=== PATIENT | male | born 1930 | race Two or more races ===

== ENCOUNTER 2018-10-18 23:00 | Inpatient (IN) | payer MEDICARE, OTHER ==
[~2018-10-18] VITALS: Ht 175.3 cm; Wt 81.6 kg
--- NOTE | 2018-10-18 23:10 | NUR ---
Pt. BIB EMS for c/o weakness and repeated falls over past two days per the daughter, A/Ox2, hx of A-fib, quadruple bypass surgery in 2000, pacemaker and HTN, pt. lives at home w/ daughter as caregiver who helps translate due to poor Lithuanian,
[2018-10-18] MEDS ORDERED: IV NORMAL SALINE 500 ML BAG IV ONE (23:15)
--- NOTE | 2018-10-18 23:24 | NUR ---
Called Radiology for CXR and CT
[2018-10-18 23:33] LABS: CARBON DIOXIDE 21 mmol/L (21-32); CHLORIDE 95 mmol/L (98-107); CREATININE 2.1 mg/dL (0.6-1.3); GLUCOSE 123 mg/dL (74-106); POTASSIUM 3.6 mmol/L (3.5-5.1); UREA NITROGEN, BLOOD 49 mg/dL (7-18)
[2018-10-18] MEDS ORDERED: TAMSULOSIN HCL 0.4 MG CAPSULE PO (23:34)
[2018-10-18] MEDS ORDERED: VOLTAREN 1% GEL (23:34)
[2018-10-18] MEDS ORDERED: ENTRESTO 24 MG-26 MG TABLET (23:34)
[2018-10-18] MEDS ORDERED: ASPIRIN 81 MG PO (23:34)
[2018-10-18] MEDS ORDERED: TRAMADOL HCL 50 MG TABLET (23:34)
[2018-10-18] MEDS ORDERED: ESCITALOPRAM 20 MG TABLET (23:34)
[2018-10-18] MEDS ORDERED: ATORVASTATIN 40 MG TABLET PO (23:34)
[2018-10-18] MEDS ORDERED: CHOL20004 PO (23:34)
[2018-10-18] MEDS ORDERED: AZELASTINE (23:34)
[2018-10-18] MEDS ORDERED: SPIRONOLACTONE 25 MG TABLET PO (23:34)
[2018-10-18] MEDS ORDERED: ELIQUIS 2.5 MG TABLET (23:34)
[2018-10-18] MEDS ORDERED: [UNRECOGNIZED DRUG - OTHER] (23:34)
[2018-10-18] MEDS ORDERED: CARVEDILOL 6.25 MG TABLET PO (23:34)
[2018-10-18] MEDS ORDERED: RANITIDINE 150 MG TABLET (23:34)
[2018-10-18 23:37] LABS: BASOPHILS % (AUTO) 0.2 % (0.0-2.0); EOSINOPHILS # (AUTO) 0.2 K/uL (0.0-0.7); EOSINOPHILS % (AUTO) 1.1 % (0.0-7.0); HEMATOCRIT 39.2 % (36.7-47.1); LYMPHOCYTES # (AUTO) 0.3 K/uL (20.0-40.0); LYMPHOCYTES % (AUTO) 1.9 % (20.5-51.5); MEAN CORPUSCULAR HEMOGLOBIN 29.2 uug (23.8-33.4); MEAN CORPUSCULAR HGB CONC 33 g/dL (32.5-36.3); MONOCYTES # (AUTO) 0.8 K/uL (2.0-10.0); MONOCYTES % (AUTO) 5.3 % (0.0-11.0); NEUTROPHILS # (AUTO) 14.3 K/uL (1.8-8.9); NEUTROPHILS % (AUTO) 91.5 % (38.5-71.5); PLATELET COUNT (AUTO) 133 K/uL (152-348); RED BLOOD CELL COUNT(AUTO) 4.46 MIL/uL (4.06-5.63); WHITE BLOOD COUNT (AUTO) 15.7 K/uL (3.6-10.2)
[2018-10-18 23:40] LABS: ETHANOL < 3 MG/DL (0-0)
[2018-10-18 23:41] LABS: *BLOOD, URINE 3+ (NEGATIVE); *CLARITY,URINE SLIGHTLY CLOUDY (CLEAR); *COLOR,URINE YELLOW (YELLOW); *KETONES,URINE TRACE (NEGATIVE); LEUKOCYTE ESTERASE ,URINE 1+ (NEGATIVE); NITRITE, URINE NEGATIVE (NEGATIVE); PH,URINE 5.5 (5.0-8.0); UGLUCOSE NEGATIVE (NEGATIVE)
--- NOTE | 2018-10-18 23:41 | NUR ---
Pt. transferred off unit for CT
[2018-10-18 23:50] LABS: ALANINE AMINOTRANSFERASE 49 U/L (16-63); ALKALINE PHOSPHATASE 105 U/L (50-136); ASPARTATE AMINOTRANSFERASE 62 U/L (15-37); BILIRUBIN,DIRECT 2.1 mg/dL (0.0-0.2); BILIRUBIN,TOTAL 2.9 mg/dL (0.2-1.0); TOTAL PROTEIN, SERUM 7.1 g/dL (6.4-8.2)
[2018-10-18 23:51] LABS: ACETAMINOPHEN < 2.0 ug/mL (10-30)
[2018-10-18 23:52] LABS: THYROID STIMULATING HORMONE 2.598 mIU/mL (0.358-3.740)
[2018-10-18 23:58] LABS: *BILIRUBIN,URIN 2+ (NEGATIVE)
[2018-10-19 00:02] LABS: BACTERIA,URINE MANY /HPF (NONE SEEN); SQUAMOUS EPITHELIAL CELL,UR MODERATE /HPF (NONE SEEN); WBC,URINE 20-50 /HPF (0-3)
--- NOTE | 2018-10-19 00:03 | NUR ---
Pt. back on unit from CT
[2018-10-19 00:05] LABS: *AMPHETAMINE, URINE NEGATIVE (NEGATIVE); *BARBITURATE, URINE NEGATIVE (NEGATIVE); *CANNABINOID, URINE NEGATIVE (NEGATIVE); *COCCAINE, URINE NEGATIVE (NEGATIVE); *OPIATE, URINE NEGATIVE (NEGATIVE); *PHENCYCLIDINE SCREEN,URINE NEGATIVE (NEGATIVE)
[2018-10-19] MEDS ORDERED: CEFTRIAXONE 1 G in IV DEXTROSE 5% 50 ML IV ONE (00:15)
[2018-10-19] MEDS ORDERED: CEFTRIAXONE 1 G VIAL ONE (00:15)
[2018-10-19 00:23] LABS: BAND % (MANUAL) 6 % (0-10); LYMPHOCYTES % (MANUAL) 4 % (20-40); MONOCYTES % (MANUAL) 8 % (2-10); NEUTROPHILS % (MANUAL) 82 % (42-75)
[2018-10-19] MEDS ORDERED: TRAMADOL HCL 50 MG TABLET PO PRN ×2 (00:45→03:40)
--- NOTE | 2018-10-19 00:47 | NUR ---
Gave report to Lorri PEARCE
[2018-10-19] MEDS ORDERED: ONDANSETRON 4 MG/2 ML VIAL IV PRN ×2 (01:00→02:00)
[2018-10-19] MEDS ORDERED: Z GUARD REMEDY PASTE 57 GM TUBE TOP PRN ×3 (01:00→11:30)
[2018-10-19] MEDS ORDERED: ACETAMINOPHEN 325 MG TABLET PO PRN ×3 (01:00→03:41)
--- NOTE | 2018-10-19 01:42 | NUR ---
Pt. taken off unit via stretcher, NAD
--- NOTE | 2018-10-19 01:45 | NUR ---
Received pt on tele unit via urszula, under the care of INNA LOVE. Pt alert and oriented x3. Pt has episodes of forgetfulness. Tele placed and noted to be Afib, atrial pacing with HR of 78. Pertinent assessments and unit orientation done. Belongings list completed. Pt denies pain, SOB or dizziness at this time. No acute distress noted. Safety precautions in place, call light within reach. Will continue to monitor closely and carry out all orders.
[2018-10-19 02:13] VITALS: BP 109/90
[2018-10-19] MEDS ORDERED: IV NS 1000 ML 1,000 ML IV PRN (03:00)
[2018-10-19 04:35] VITALS: BP 101/50
[2018-10-19 07:12] LABS: LYMPHOCYTES # (AUTO) 0.5 K/uL (20.0-40.0)
[2018-10-19 07:18] LABS: EOSINOPHILS % (AUTO) 0.3 % (0.0-7.0); LYMPHOCYTES % (AUTO) 3.4 % (20.5-51.5); MEAN CORPUSCULAR HEMOGLOBIN 28.9 uug (23.8-33.4); MEAN CORPUSCULAR HGB CONC 33 g/dL (32.5-36.3); MEAN CORPUSCULAR VOLUME 87.3 fL (73.0-96.2); MONOCYTES % (AUTO) 7.1 % (0.0-11.0); NEUTROPHILS # (AUTO) 13.2 K/uL (1.8-8.9); NEUTROPHILS % (AUTO) 89.2 % (38.5-71.5); PLATELET COUNT (AUTO) 113 K/uL (152-348); RED BLOOD CELL COUNT(AUTO) 3.93 MIL/uL (4.06-5.63); WHITE BLOOD COUNT (AUTO) 14.7 K/uL (3.6-10.2)
[2018-10-19 07:19] LABS: HEMATOCRIT 34.3 % (36.7-47.1); HEMOGLOBIN 11.4 g/dL (12.5-16.3)
[2018-10-19 07:22] LABS: CARBON DIOXIDE 19 mmol/L (21-32); CHLORIDE 98 mmol/L (98-107); CREATININE 1.8 mg/dL (0.6-1.3); GLUCOSE 131 mg/dL (74-106); MAGNESIUM 1.8 mg/dL (1.8-2.4); PHOSPHOROUS 2.6 mg/dL (2.5-4.9); POTASSIUM 3.2 mmol/L (3.5-5.1); UREA NITROGEN, BLOOD 49 mg/dL (7-18)
--- NOTE | 2018-10-19 07:30 | NUR ---
sbar report received,pt A/A/O x3,no s/s of distress,denies any pain @ time.
[2018-10-19] MEDS ORDERED: APIXABAN 5 MG TABLET PO ONE ×2 (09:00→17:00)
[2018-10-19] MEDS ORDERED: CEFTRIAXONE 1 G in IV DEXTROSE 5% 50 ML IV SCH ×2 (09:00→21:00)
[2018-10-19] MEDS: ESCITALOPRAM OXALATE 10 MG TABLET PO SCH (09:06)
[2018-10-19] MEDS: ASPIRIN EC 81 MG TABLET.DR PO SCH (09:07)
[2018-10-19] MEDS: TAMSULOSIN HCL 0.4 MG CAP.SR.24H PO SCH (09:07)
[2018-10-19] MEDS: CARVEDILOL 3.125 MG TABLET PO SCH ×2 (09:07→17:19)
[2018-10-19] MEDS: CHOLECALCIFEROL 1,000 UNIT TABLET PO SCH (09:08)
--- NOTE | 2018-10-19 11:05 | NUR ---
pt.up with PT,tolerated well.
[2018-10-19 11:19] VITALS: BP 93/50
--- NOTE | 2018-10-19 13:30 | NUR ---
PT.FAMILY AT BEDSIDE, UPDATED WITH PT.CONDITION AND PLAN OF CARE.
--- NOTE | 2018-10-19 15:00 | NUR ---
NOTED THAT PT.MIN.VOIDING IN DIAPER,BLADER SCAN WAS DONE 525ML. PT.WAS PLACED IN UPRIGHT POSITION WAS ABLE TO URINATE.
[2018-10-19] MEDS ORDERED: POTASSIUM CHLORIDE 10 MEQ TAB.PRT.SR PO ONE (15:15)
[2018-10-19 15:19] VITALS: BP 95/45
[2018-10-19] MEDS ORDERED: FUROSEMIDE 40 MG/4 ML VIAL IV ONE (17:30)
--- NOTE | 2018-10-19 18:40 | NUR ---
PT.WAS SEEN BY ELECTRIC DISTRIBUTION CHECKER:JAEL WITH NEW ORDERS.
--- NOTE | 2018-10-19 18:55 | NUR ---
PT.DAUGHTER AT BEDSIDE,UPDATED WITH PT.CONDITION AND PLAN OF CARE.
[2018-10-19 19:00] VITALS: BP 112/52
--- NOTE | 2018-10-19 19:30 | NUR ---
RECEIVED PATIENT IN BED AWAKE AND ALERT, CONFUSED. DAUGHTER IS AT BED SIDE. NO COMPLAINTS OF PAIN OR SOB. IV HEPLOCK IS IN INTACT ON THE RIGHT AC. SAFETY MEASURES INITIATED. BED IS LOW AND LOCKED, CALL LIGHT IS WITHIN REACH. WILL CONTINUE TO MONITOR.
[2018-10-19] MEDS: MEROPENEM 500 MG in IV NORMAL SALINE 50 ML IV SCH (20:13)
[2018-10-19] MEDS: ATORVASTATIN 40 MG TABLET PO SCH (20:53)
[2018-10-19] MEDS: Z GUARD REMEDY PASTE 57 GM TUBE TOP SCH (20:53)
[2018-10-20] VITALS: BP 148/66
[2018-10-20] MEDS: IPRATROPIUM BROMIDE 0.5 MG/2.5 ML NEBU NEB PRN ×2 (02:24→23:18)
[2018-10-20] MEDS: ALBUTEROL SULFATE 2.5 MG/3 ML NEBU NEB PRN ×2 (02:24→23:18)
--- NOTE | 2018-10-20 03:05 | NUR ---
BLADDER SCAN DONE AT 0246H SHOWING 602cc. INSERTED RODRIGUEZ CATHETER WITH 650cc OUTPUT. WILL CONTINUE TO MONITOR.
[2018-10-20 04:00] VITALS: BP 113/42
--- NOTE | 2018-10-20 06:47 | NUR ---
PATIENT AWAKE MOST OF THE NIGHT, CONFUSED AND AGITATED. TRYING TO GET OUT OF BED. RECEIVED ORDER TO HAVE 1:1 SITTER. SAFETY MEASURES GIVEN. IV HEPLOCK IS INTACT AND PATENT. WILL ENDORSE TO NEXT SHIFT.
[2018-10-20 06:49] LABS: CARBON DIOXIDE 20 mmol/L (21-32); CHLORIDE 96 mmol/L (98-107); CREATININE 1.5 mg/dL (0.6-1.3); GLUCOSE 122 mg/dL (74-106); MAGNESIUM 1.9 mg/dL (1.8-2.4); PHOSPHOROUS 1.7 mg/dL (2.5-4.9); POTASSIUM 3.8 mmol/L (3.5-5.1); UREA NITROGEN, BLOOD 46 mg/dL (7-18); URIC ACID 8.2 mg/dL (3.5-7.2)
[2018-10-20 07:41] LABS: THYROID STIMULATING HORMONE 1.417 mIU/mL (0.358-3.740)
--- NOTE | 2018-10-20 08:00 | NUR ---
SBAR report received.Pt remains awake,alert with periods of confusion.Sitter at bedside for safety.No s/s of pain,discomfort.O2 at 2l via NC tolerated well.No SOB noted.Will continue to monitor.
[2018-10-20] MEDS ORDERED: APIXABAN 5 MG TABLET PO ONE (09:00)
[2018-10-20] MEDS: CARVEDILOL 3.125 MG TABLET PO SCH ×2 (09:38→18:06)
[2018-10-20] MEDS: MEROPENEM 500 MG in IV NORMAL SALINE 50 ML IV SCH ×2 (09:38→20:58)
[2018-10-20] MEDS: TAMSULOSIN HCL 0.4 MG CAP.SR.24H PO SCH (09:38)
[2018-10-20] MEDS: ELIQUIS 2.5 MG ***PT'S OWN MED PO SCH ×2 (09:39→18:06)
[2018-10-20] MEDS: ASPIRIN EC 81 MG TABLET.DR PO SCH (09:39)
[2018-10-20] MEDS: CHOLECALCIFEROL 1,000 UNIT TABLET PO SCH (09:39)
[2018-10-20] MEDS: ESCITALOPRAM OXALATE 10 MG TABLET PO SCH (09:39)
[2018-10-20] MEDS: Z GUARD REMEDY PASTE 57 GM TUBE TOP SCH ×2 (09:40→21:02)
[2018-10-20 10:17] LABS: BILIRUBIN,DIRECT 1.5 mg/dL (0.0-0.2); BILIRUBIN,TOTAL 2.1 mg/dL (0.2-1.0); TOTAL PROTEIN, SERUM 6.5 g/dL (6.4-8.2)
[2018-10-20 11:25] VITALS: BP 104/42
--- NOTE | 2018-10-20 11:30 | NUR ---
Seen,examined by .Updated on pt status.
[2018-10-20] MEDS ORDERED: NEUTRA PHOS PACKET PO ONE (15:15)
[2018-10-20 15:27] VITALS: BP 107/58
--- NOTE | 2018-10-20 16:55 | NUR ---
Pt daughter at bedside.Updated on pt plan of care.
[2018-10-20] MEDS ORDERED: FUROSEMIDE 20 MG/2 ML VIAL IV ONE (17:45)
[2018-10-20 20:00] VITALS: BP 109/62
[2018-10-20] MEDS: ATORVASTATIN 40 MG TABLET PO SCH (20:58)
--- NOTE | 2018-10-20 21:51 | NUR ---
PATIENT IS AAX01 WITH CONFUSION, NO S/S OF PAIN OR DISTRESS AT PRESENT. 1:1 SITTER AT BEDSIDE FOR SAFETY, WILL CONTINUE TO MONITOR PATIENT
[2018-10-21] MEDS: IPRATROPIUM BROMIDE 0.5 MG/2.5 ML NEBU NEB PRN (03:23)
[2018-10-21] MEDS: ALBUTEROL SULFATE 2.5 MG/3 ML NEBU NEB PRN (03:24)
[2018-10-21 04:00] VITALS: BP 96/58
--- NOTE | 2018-10-21 06:33 | NUR ---
Patient continues to be confused but able to redirect, no acute distress or s/s of pain on this shift. Sitter remains at bedside for safety
[2018-10-21 07:26] LABS: BASOPHILS % (AUTO) 0.1 % (0.0-2.0); EOSINOPHILS % (AUTO) 0.2 % (0.0-7.0); HEMATOCRIT 34.9 % (36.7-47.1); HEMOGLOBIN 11.7 g/dL (12.5-16.3); LYMPHOCYTES # (AUTO) 0.8 K/uL (20.0-40.0); LYMPHOCYTES % (AUTO) 4.9 % (20.5-51.5); MEAN CORPUSCULAR HEMOGLOBIN 29.1 uug (23.8-33.4); MEAN CORPUSCULAR HGB CONC 34 g/dL (32.5-36.3); MEAN CORPUSCULAR VOLUME 86.6 fL (73.0-96.2); MONOCYTES # (AUTO) 1.5 K/uL (2.0-10.0); MONOCYTES % (AUTO) 9.5 % (0.0-11.0); NEUTROPHILS # (AUTO) 13.6 K/uL (1.8-8.9); NEUTROPHILS % (AUTO) 85.3 % (38.5-71.5); PLATELET COUNT (AUTO) 129 K/uL (152-348); RED BLOOD CELL COUNT(AUTO) 4.03 MIL/uL (4.06-5.63); WHITE BLOOD COUNT (AUTO) 15.9 K/uL (3.6-10.2)
[2018-10-21 07:54] LABS: LYMPHOCYTES % (MANUAL) 4 % (20-40); MONOCYTES % (MANUAL) 11 % (2-10); NEUTROPHILS % (MANUAL) 85 % (42-75)
[2018-10-21] MEDS: CHOLECALCIFEROL 1,000 UNIT TABLET PO SCH (08:00)
[2018-10-21] MEDS: ASPIRIN EC 81 MG TABLET.DR PO SCH (08:01)
[2018-10-21] MEDS: TAMSULOSIN HCL 0.4 MG CAP.SR.24H PO SCH (08:01)
[2018-10-21] MEDS: ESCITALOPRAM OXALATE 10 MG TABLET PO SCH (08:01)
[2018-10-21] MEDS: CARVEDILOL 3.125 MG TABLET PO SCH ×2 (08:02→16:23)
[2018-10-21] MEDS: Z GUARD REMEDY PASTE 57 GM TUBE TOP SCH ×2 (08:02→21:02)
[2018-10-21 08:03] LABS: ALANINE AMINOTRANSFERASE 36 U/L (16-63); ALKALINE PHOSPHATASE 90 U/L (50-136); ASPARTATE AMINOTRANSFERASE 41 U/L (15-37); BILIRUBIN,TOTAL 1.5 mg/dL (0.2-1.0); CARBON DIOXIDE 22 mmol/L (21-32); CHLORIDE 101 mmol/L (98-107); CREATININE 1.6 mg/dL (0.6-1.3); GLUCOSE 133 mg/dL (74-106); MAGNESIUM 1.7 mg/dL (1.8-2.4); POTASSIUM 2.9 mmol/L (3.5-5.1); TOTAL PROTEIN, SERUM 5.9 g/dL (6.4-8.2); UREA NITROGEN, BLOOD 51 mg/dL (7-18)
[2018-10-21 08:20] VITALS: BP 91/45
[2018-10-21] MEDS: MEROPENEM 500 MG in IV NORMAL SALINE 50 ML IV SCH (08:27)
[2018-10-21] MEDS: ELIQUIS 2.5 MG ***PT'S OWN MED PO SCH ×2 (09:41→16:56)
[2018-10-21] MEDS ORDERED: MAGNESIUM SULFATE/D5W 100 ML IV SCH (11:15)
[2018-10-21] MEDS ORDERED: POTASSIUM CHLORIDE 10 MEQ TAB.PRT.SR PO ONE (11:15)
[2018-10-21 12:00] VITALS: BP 109/55
[2018-10-21] MEDS ORDERED: POTASSIUM CHLORIDE 20 MEQ TAB.PRT.SR PO ONE (15:00)
[2018-10-21] MEDS ORDERED: NEUTRA PHOS PACKET PO ONE (15:15)
[2018-10-21 16:00] VITALS: BP 101/62
--- NOTE | 2018-10-21 19:35 | NUR ---
Received pt sitting up in bed, awake, AxO x1 to name. 1:1 sitter for pt safety. Iv intact and patent. Antibiotic therapy noted. No acute distress noted. Pt denies pain or SOB. Safety and comfort provided. Call light within reach, will continue to monitor.
[2018-10-21 20:00] VITALS: BP_SYST 112; BP_SYST 124; BP_DIAS 52; BP_DIAS 58
[2018-10-21] MEDS: ATORVASTATIN 40 MG TABLET PO SCH (20:57)
[2018-10-21] MEDS ORDERED: CEFTRIAXONE 1 G in IV DEXTROSE 5% 50 ML IV SCH (21:00)
[2018-10-22 04:00] VITALS: BP 124/64
--- NOTE | 2018-10-22 06:51 | NUR ---
Pt slept well t/o the night. 1:1 at bedside for safety. Pt has episodes of forgetfulness and restlessness. Pt denies pain or SOB, no acute distress noted. Kept pt clean and dry. F/C in place. Safe environment maintained at all times. Comfort measures provided. Call light within reach, all needs met. Will endorse accordingly to day shift nurse.
[2018-10-22] MEDS: CHOLECALCIFEROL 1,000 UNIT TABLET PO SCH (08:01)
[2018-10-22] MEDS: ESCITALOPRAM OXALATE 10 MG TABLET PO SCH (08:01)
[2018-10-22] MEDS: CARVEDILOL 3.125 MG TABLET PO SCH ×2 (08:02→16:00)
[2018-10-22] MEDS: ELIQUIS 2.5 MG ***PT'S OWN MED PO SCH ×2 (08:02→16:00)
[2018-10-22] MEDS: TAMSULOSIN HCL 0.4 MG CAP.SR.24H PO SCH (08:02)
[2018-10-22] MEDS: ASPIRIN EC 81 MG TABLET.DR PO SCH (08:02)
[2018-10-22 08:26] LABS: CARBON DIOXIDE 22 mmol/L (21-32); CHLORIDE 101 mmol/L (98-107); CREATININE 1.3 mg/dL (0.6-1.3); GLUCOSE 140 mg/dL (74-106); MAGNESIUM 2.2 mg/dL (1.8-2.4); PHOSPHOROUS 2.7 mg/dL (2.5-4.9); POTASSIUM 3.5 mmol/L (3.5-5.1); UREA NITROGEN, BLOOD 46 mg/dL (7-18)
[2018-10-22] MEDS: Z GUARD REMEDY PASTE 57 GM TUBE TOP SCH (08:43)
[2018-10-22 10:57] VITALS: BP 112/51
[2018-10-22 15:06] VITALS: BP 103/56
[2018-10-22 16:00] VITALS: BP 103/60
--- NOTE | 2018-10-22 16:30 | NUR ---
D/C ORDERS RECEIVED NOTED AND CARRIED OUT,D/C INSTRUCTION AND EDUCATION GIVEN TO THE PT AND RN ADALBERTO ,PT LEFT THE FACILITY VIA WHEEL CHAIR TO ARU IN STABLE CONDITION
[2018-10-22] MEDS ORDERED: CEFT1VIA15 IV (17:55)
[2018-10-22] MEDS ORDERED: ZINC113P3 TP (17:55)
[2018-10-22] MEDS ORDERED: APIX2.5T PO (17:55)
== END 2018-10-22 16:15 | DRG 871 ==
LOC: ER 23:04 → TELE 10-19 01:17 → MED 10-20 12:04
PROVIDERS: ADMIT Nurse Practitioner Acute Care; ATTEND Internal Medicine
DX: A41.51 Sepsis due to Escherichia coli [E. coli] (principal); G92 Toxic encephalopathy; N17.0 Acute kidney failure with tubular necrosis; I21.A1 Myocardial infarction type 2; I50.23 Acute on chronic systolic (congestive) heart failure; E43 Unspecified severe protein-calorie malnutrition; N39.0 Urinary tract infection, site not specified; E87.1 Hypo-osmolality and hyponatremia; I13.0 Hypertensive heart and chronic kidney disease with heart failure and stage 1 through stage 4 chronic kidney disease, or unspecified chronic kidney disease; R17 Unspecified jaundice; R65.20 Severe sepsis without septic shock; Z16.11 Resistance to penicillins; Z16.29 Resistance to other single specified antibiotic; Z95.810 Presence of automatic (implantable) cardiac defibrillator; Z79.01 Long term (current) use of anticoagulants; G20 Parkinson's disease; I25.10 Atherosclerotic heart disease of native coronary artery without angina pectoris; Z95.1 Presence of aortocoronary bypass graft; N40.0 Benign prostatic hyperplasia without lower urinary tract symptoms; Z98.42 Cataract extraction status, left eye; Z98.41 Cataract extraction status, right eye; Z87.891 Personal history of nicotine dependence; Z74.09 Other reduced mobility; I25.5 Ischemic cardiomyopathy; I48.0 Paroxysmal atrial fibrillation; N18.9 Chronic kidney disease, unspecified; M19.90 Unspecified osteoarthritis, unspecified site; G31.84 Mild cognitive impairment of uncertain or unknown etiology; Z68.26 Body mass index [BMI] 26.0-26.9, adult; Z91.81 History of falling; Z90.79 Acquired absence of other genital organ(s); E78.5 Hyperlipidemia, unspecified; R73.9 Hyperglycemia, unspecified; K21.9 Gastro-esophageal reflux disease without esophagitis; R29.6 Repeated falls
CPT/HCPCS: 36415; 70030-TC; 70450; 71045; 80307; 83605; 83735; 84100; 84300; 84443; 84550; 85025; 85730; 87040; 87077; 87086; 93005; 93307; 94640; 94664; 97110; 97116; 97530; A4663; G0378; G0480; G0480-TC; J0696; J1940; J2185; J3475; J3490; J3590; J7030; J7040; J7060

== ENCOUNTER 2018-10-22 16:41 | Inpatient (IN) | payer MEDICARE, OTHER ==
[~2018-10-22] VITALS: Ht 175.3 cm; Wt 81.6 kg
[~2018-10-22 16:41] MED LIST: ASPIRIN 81 MG PO; ATORVASTATIN 40 MG TABLET PO; AZELASTINE; CARVEDILOL 6.25 MG TABLET PO; CHOL20004 PO; ELIQUIS 2.5 MG TABLET; ENTRESTO 24 MG-26 MG TABLET; ESCITALOPRAM 20 MG TABLET; RANITIDINE 150 MG TABLET; SPIRONOLACTONE 25 MG TABLET PO; TAMSULOSIN HCL 0.4 MG CAPSULE PO; TRAMADOL HCL 50 MG TABLET; VOLTAREN 1% GEL; [UNRECOGNIZED DRUG - OTHER]
[2018-10-22 17:00] VITALS: BP 100/51
[2018-10-22] MEDS ORDERED: CEFT1VIA15 IV (17:55)
[2018-10-22] MEDS ORDERED: ZINC113P2 TP (17:55)
[2018-10-22] MEDS ORDERED: APIX2.5T PO (17:55)
--- NOTE | 2018-10-22 18:30 | NUR ---
Admitted this 88 y/o male [place] [facility] of acute metabolic encephalopathy, transferred via wheelchair. Patient is alert, verbally responsive, oriented x 2-3, not in any form of acute distress. He denies any pain or discomfort at this time. Routine admission care done. Call light placed within reach. Observed fall precaution. Notified Dr. Ross regarding admission and need for med recon. Dr. Ross ordered Levaquin 500mg PO daily x 14days and do CBC in am, and MD said he will reconcile medications. Dr. Rincon made aware of admission.
[2018-10-22 20:10] VITALS: BP 98/56
[2018-10-22] MEDS ORDERED: Medication Not On Formulary EA (Apixaban (Eliquis) 2.5 MG) PO SCH (20:30)
[2018-10-22] MEDS: CHOLECALCIFEROL 1,000 UNIT TABLET PO SCH (21:00)
[2018-10-22] MEDS: ATORVASTATIN 40 MG TABLET PO SCH (21:00)
[2018-10-22] MEDS ORDERED: LEVOFLOXACIN 500 MG TABLET PO SCH ×2 (21:00)
[2018-10-22] MEDS ORDERED: Medication Not On Formulary EA (Cholecalciferol (Vitamin D3) (Vitamin D CAPSULE) 2,000 U PO SCH (21:00)
--- NOTE | 2018-10-22 21:26 | NUR ---
Received pt in bed, AAO x 2-3 with daughter at bedside. No acute distress noted. Verbally responsive and able to make needs known. Denies pain or discomfort at this time. All due medications given as ordered by MD, tolerated well. All safety measures and fall precautions maintained. Thomas cath draining clear yellow urine into bag. Call light and all personal belongings within reach. Will continue to monitor.
[2018-10-23 05:39] VITALS: BP 100/54
[2018-10-23 07:02] LABS: BASOPHILS % (AUTO) 0.2 % (0.0-2.0); EOSINOPHILS # (AUTO) 0.2 K/uL (0.0-0.7); EOSINOPHILS % (AUTO) 1.2 % (0.0-7.0); HEMOGLOBIN 12.2 g/dL (12.5-16.3); LYMPHOCYTES # (AUTO) 1.4 K/uL (20.0-40.0); LYMPHOCYTES % (AUTO) 9.8 % (20.5-51.5); MEAN CORPUSCULAR HEMOGLOBIN 28.4 uug (23.8-33.4); MEAN CORPUSCULAR HGB CONC 33 g/dL (32.5-36.3); MEAN CORPUSCULAR VOLUME 86.4 fL (73.0-96.2); MONOCYTES # (AUTO) 1.6 K/uL (2.0-10.0); MONOCYTES % (AUTO) 10.8 % (0.0-11.0); NEUTROPHILS # (AUTO) 11.4 K/uL (1.8-8.9); PLATELET COUNT (AUTO) 191 K/uL (152-348); RED BLOOD CELL COUNT(AUTO) 4.28 MIL/uL (4.06-5.63); WHITE BLOOD COUNT (AUTO) 14.7 K/uL (3.6-10.2)
[2018-10-23 07:30] VITALS: BP 126/57
[2018-10-23] MEDS: ASPIRIN 81 MG TAB.CHEW PO SCH (08:15)
[2018-10-23] MEDS: SPIRONOLACTONE 25 MG TABLET PO SCH (08:15)
[2018-10-23] MEDS: CARVEDILOL 6.25 MG TABLET PO SCH ×2 (08:15→17:01)
[2018-10-23] MEDS ORDERED: ELIQUIS 2.5 MG PO SCH (09:00)
[2018-10-23] MEDS ORDERED: SPIRONOLACTONE PO SCH (09:00)
--- NOTE | 2018-10-23 10:35 | NUR ---
Received patient awake in be in stable condition. Blood in the urine noted. WBC reult 14.7. CHAIN MAKER MACHINE Jumana made aware. Therapy evaluation done. walks with walker with therapy noted. not in distress. no complaint of pain/discomfort noted. will continue monitor
--- NOTE | 2018-10-23 13:42 | NUR ---
INTERDISCIPLINARY TEAM CONFERENCE
--- NOTE | 2018-10-23 14:56 | NUR ---
Patient noted blood in the urine. no complaint of pain/discomfort. MD Dahl/STEVE Denney notified with order discontinue eliquis 2.5mg BID until further order. not in distress. will continue monitor
[2018-10-23 15:47] VITALS: BP 105/38
[2018-10-23] MEDS: ESCITALOPRAM OXALATE 10 MG TABLET PO SCH (18:40)
[2018-10-23 19:59] VITALS: BP 120/45
[2018-10-23] MEDS: TAMSULOSIN HCL 0.4 MG CAP.SR.24H PO SCH (20:17)
[2018-10-23] MEDS: LEVOFLOXACIN 250 MG TABLET PO SCH (20:17)
[2018-10-23] MEDS: ENTRESTO (SACUBITRIL/VALSARTAN) 24MG/26MG PO SCH (20:17)
[2018-10-23] MEDS: ATORVASTATIN 40 MG TABLET PO SCH (20:17)
[2018-10-23] MEDS: CHOLECALCIFEROL 1,000 UNIT TABLET PO SCH (20:17)
--- NOTE | 2018-10-24 00:20 | NUR ---
Received pt in bed, appearing to be asleep but easily arousable to verbal stimuli and light touch. No acute distress noted. Verbally responsive and able to make needs known. Denies pain or discomfort. Thomas cath noted draining clear, yellow urine into bag. All due medications given as ordered by MD, tolerated well. All safety measures and fall precautions maintained. Call light and all personal belongings within reach. Will continue to monitor.
[2018-10-24 04:43] VITALS: BP 109/55
[2018-10-24] MEDS: SPIRONOLACTONE 25 MG TABLET PO SCH (08:23)
[2018-10-24] MEDS: ESCITALOPRAM OXALATE 10 MG TABLET PO SCH (08:23)
[2018-10-24] MEDS: ASPIRIN 81 MG TAB.CHEW PO SCH (08:24)
[2018-10-24] MEDS: CARVEDILOL 6.25 MG TABLET PO SCH ×2 (08:31→17:44)
[2018-10-24] MEDS: BISACODYL 5 MG TABLET.DR PO SCH (08:31)
[2018-10-24] MEDS: ENTRESTO (SACUBITRIL/VALSARTAN) 24MG/26MG PO SCH ×2 (08:32→20:50)
[2018-10-24 19:45] VITALS: BP 107/56
--- NOTE | 2018-10-24 19:45 | NUR ---
Patient received in bed. AAO x2. Able to make needs known. No sign of acute distress or SOB was noted. On room air. No Complain of pain at this time. Patient assessed. Thomas catheter in place draining dark urine. Safety measures maintained. Fall prevention observed. Bed in low position, brake and alarm on, side rails up x2. Call light and personal belongings within reach. Will continue to monitor.
[2018-10-24] MEDS: LEVOFLOXACIN 250 MG TABLET PO SCH (20:49)
[2018-10-24] MEDS: ATORVASTATIN 40 MG TABLET PO SCH (20:49)
[2018-10-24] MEDS: CHOLECALCIFEROL 1,000 UNIT TABLET PO SCH (20:50)
[2018-10-24] MEDS: TAMSULOSIN HCL 0.4 MG CAP.SR.24H PO SCH (20:50)
[2018-10-25] MEDS: ZOLPIDEM 5 MG TABLET PO PRN (01:00)
--- NOTE | 2018-10-25 01:19 | NUR ---
Patient had trouble falling sleep. Patient asked for sleeping pills. Called on-call [facility]. Received order for Ambien 5 mg PRN from Ronnie Coronel NP. Medication given. Continue to monitor.
--- NOTE | 2018-10-25 06:47 | NUR ---
End of the shift note Patient was stable throughout the shift and had a good sleep after administration of Ambien 5 mg tab. No sign of acute distress or SOB noted. No Complain of pain at this time. patient assessment done. Emptied Thomas catheter, blood was seen in the catheter, urine was dark. Skin assessed. Medications given as ordered and well tolerated. Keep him clean and dry. Safety measures maintained. All needs anticipated promptly. Fall precaution maintained. Bed in low position, brake and alarm on, side rails up x2. Call light and personal belongings within reach. Continue to monitor and will endorse to the day shift nurse accordingly.
[2018-10-25 06:55] VITALS: BP 107/59
[2018-10-25 07:11] LABS: BASOPHILS % (AUTO) 0.2 % (0.0-2.0); EOSINOPHILS # (AUTO) 0.1 K/uL (0.0-0.7); EOSINOPHILS % (AUTO) 0.7 % (0.0-7.0); HEMATOCRIT 36.3 % (36.7-47.1); HEMOGLOBIN 11.9 g/dL (12.5-16.3); LYMPHOCYTES # (AUTO) 1.4 K/uL (20.0-40.0); LYMPHOCYTES % (AUTO) 7.7 % (20.5-51.5); MEAN CORPUSCULAR HEMOGLOBIN 28.5 uug (23.8-33.4); MEAN CORPUSCULAR HGB CONC 33 g/dL (32.5-36.3); MEAN CORPUSCULAR VOLUME 86.9 fL (73.0-96.2); MONOCYTES # (AUTO) 1.5 K/uL (2.0-10.0); MONOCYTES % (AUTO) 8.3 % (0.0-11.0); NEUTROPHILS % (AUTO) 83.1 % (38.5-71.5); PLATELET COUNT (AUTO) 261 K/uL (152-348); RED BLOOD CELL COUNT(AUTO) 4.18 MIL/uL (4.06-5.63); WHITE BLOOD COUNT (AUTO) 18.1 K/uL (3.6-10.2)
[2018-10-25 07:19] LABS: CARBON DIOXIDE 24 mmol/L (21-32); CHLORIDE 101 mmol/L (98-107); GLUCOSE 121 mg/dL (74-106); MAGNESIUM 1.7 mg/dL (1.8-2.4); PHOSPHOROUS 2.9 mg/dL (2.5-4.9); POTASSIUM 4.2 mmol/L (3.5-5.1); UREA NITROGEN, BLOOD 27 mg/dL (7-18)
[2018-10-25] MEDS: SPIRONOLACTONE 25 MG TABLET PO SCH (09:10)
[2018-10-25] MEDS: CARVEDILOL 6.25 MG TABLET PO SCH ×2 (09:10→17:30)
[2018-10-25] MEDS: ESCITALOPRAM OXALATE 10 MG TABLET PO SCH (09:10)
[2018-10-25] MEDS: BISACODYL 5 MG TABLET.DR PO SCH (09:10)
[2018-10-25] MEDS: ENTRESTO (SACUBITRIL/VALSARTAN) 24MG/26MG PO SCH ×2 (09:11→20:41)
[2018-10-25] MEDS: ASPIRIN 81 MG TAB.CHEW PO SCH (09:11)
[2018-10-25] MEDS ORDERED: MAGNESIUM OXIDE 400 MG TABLET PO ONE (12:00)
--- NOTE | 2018-10-25 13:07 | NUR ---
INTERDISCIPLINARY TEAM CONFERENCE
--- NOTE | 2018-10-25 19:40 | NUR ---
Patient received in bed. AAO x3. Able to make needs known. No sign of acute distress or SOB was noted. On room air. No Complain of pain at this time. Patient assessed. Thomas catheter in place draining yellow urine. Safety measures maintained. Fall prevention observed. Bed in low position, brake and alarm on, side rails up x2. Call light and personal belongings within reach. Will continue to monitor.
[2018-10-25 20:00] VITALS: BP 99/53
[2018-10-25] MEDS: ATORVASTATIN 40 MG TABLET PO SCH (20:40)
[2018-10-25] MEDS: LEVOFLOXACIN 250 MG TABLET PO SCH (20:40)
[2018-10-25] MEDS: TAMSULOSIN HCL 0.4 MG CAP.SR.24H PO SCH (20:41)
[2018-10-25] MEDS: CHOLECALCIFEROL 1,000 UNIT TABLET PO SCH (20:41)
--- NOTE | 2018-10-26 05:51 | NUR ---
End of the shift note Patient was stable throughout the shift and had a good sleep. No sign of acute distress or SOB noted. No Complain of pain. patient assessment done. Emptied Thomas catheter, dark urine. Assisted to the restroom for bowel movement. Skin assessed. Medications given as ordered and well tolerated. Keep him clean and dry. Safety measures maintained. All needs anticipated promptly. Fall precaution maintained. Bed in low position, brake and alarm on, side rails up x2. Call light and personal belongings within reach. Continue to monitor and will endorse to the day shift nurse accordingly.
[2018-10-26 06:22] VITALS: BP 118/61
[2018-10-26 07:30] VITALS: BP 107/59
[2018-10-26] MEDS: SPIRONOLACTONE 25 MG TABLET PO SCH (08:15)
[2018-10-26] MEDS: ASPIRIN 81 MG TAB.CHEW PO SCH (08:15)
[2018-10-26] MEDS: CARVEDILOL 6.25 MG TABLET PO SCH ×2 (08:15→16:59)
[2018-10-26] MEDS: ESCITALOPRAM OXALATE 10 MG TABLET PO SCH (08:16)
[2018-10-26] MEDS: BISACODYL 5 MG TABLET.DR PO SCH (08:16)
[2018-10-26] MEDS: ENTRESTO (SACUBITRIL/VALSARTAN) 24MG/26MG PO SCH ×2 (08:16→20:27)
--- NOTE | 2018-10-26 11:24 | NUR ---
WOUND CARE CONSULT: PT PRESENTS WITH DRY LESIONS TO RT SHOULDER AREA AND MIDBACK, PRESENT ON ADMISSION. SCARRING ALSO NOTED TO MIDBACK. DEFER TO MD FOR LESIONS. SKIN PROTECTION RECOMMENDATIONS DISCUSSED WITH NURSING STAFF. WILL SEE PRN. HARRIS IN AGREEMENT WITH PLAN OF CARE. Addendum: 10/26/18 at 1126 by TONY LAKE RN Amended: Links added.
[2018-10-26] MEDS ORDERED: Z GUARD REMEDY PASTE 57 GM TUBE TOP PRN (11:30)
[2018-10-26 16:01] VITALS: BP 89/46
[2018-10-26 19:47] VITALS: BP 130/55
[2018-10-26] MEDS: ATORVASTATIN 40 MG TABLET PO SCH (20:27)
[2018-10-26] MEDS: CHOLECALCIFEROL 1,000 UNIT TABLET PO SCH (20:27)
[2018-10-26] MEDS: LEVOFLOXACIN 250 MG TABLET PO SCH (20:27)
[2018-10-26] MEDS: TAMSULOSIN HCL 0.4 MG CAP.SR.24H PO SCH (20:33)
--- NOTE | 2018-10-26 22:41 | NUR ---
Received pt in bed, AAO x 3 watching television. No acute distress noted. Verbally responsive and able to make needs known. Denies pain or discomfort. All due medications given as ordered, tolerated well. All safety measures and fall precautions maintained. Thomas noted draining well, clear yellow urine into bag. Call light and all personal belongings within reach. Will continue to monitor.
[2018-10-27 05:10] VITALS: BP 96/48
[2018-10-27 07:36] LABS: BASOPHILS # (AUTO) 0.1 K/uL (0.0-8.0); BASOPHILS % (AUTO) 0.4 % (0.0-2.0); EOSINOPHILS # (AUTO) 0.2 K/uL (0.0-0.7); EOSINOPHILS % (AUTO) 1.4 % (0.0-7.0); HEMATOCRIT 36.4 % (36.7-47.1); HEMOGLOBIN 11.7 g/dL (12.5-16.3); LYMPHOCYTES # (AUTO) 2.1 K/uL (20.0-40.0); LYMPHOCYTES % (AUTO) 14.1 % (20.5-51.5); MEAN CORPUSCULAR HEMOGLOBIN 28.2 uug (23.8-33.4); MEAN CORPUSCULAR HGB CONC 32 g/dL (32.5-36.3); MEAN CORPUSCULAR VOLUME 87.3 fL (73.0-96.2); MONOCYTES % (AUTO) 6.8 % (0.0-11.0); NEUTROPHILS # (AUTO) 11.5 K/uL (1.8-8.9); NEUTROPHILS % (AUTO) 77.3 % (38.5-71.5); PLATELET COUNT (AUTO) 294 K/uL (152-348); RED BLOOD CELL COUNT(AUTO) 4.17 MIL/uL (4.06-5.63); WHITE BLOOD COUNT (AUTO) 14.8 K/uL (3.6-10.2)
[2018-10-27] MEDS: CARVEDILOL 6.25 MG TABLET PO SCH ×2 (08:00→18:00)
[2018-10-27 08:03] VITALS: BP 100/53
[2018-10-27] MEDS: ESCITALOPRAM OXALATE 10 MG TABLET PO SCH (09:56)
[2018-10-27] MEDS: ASPIRIN 81 MG TAB.CHEW PO SCH (09:56)
[2018-10-27] MEDS: SPIRONOLACTONE 25 MG TABLET PO SCH (09:58)
[2018-10-27] MEDS: BISACODYL 5 MG TABLET.DR PO SCH (09:58)
[2018-10-27] MEDS: ENTRESTO (SACUBITRIL/VALSARTAN) 24MG/26MG PO SCH (10:00)
--- NOTE | 2018-10-27 18:56 | NUR ---
Notified Dr. Drew who is in the unit regarding Entresto and Coreg, per OK to hold above medications with low BP.
[2018-10-27 20:00] VITALS: BP 97/50
[2018-10-27] MEDS: CHOLECALCIFEROL 1,000 UNIT TABLET PO SCH (21:05)
[2018-10-27] MEDS: ATORVASTATIN 10 MG TABLET PO SCH (21:05)
[2018-10-27] MEDS: TAMSULOSIN HCL 0.4 MG CAP.SR.24H PO SCH (21:05)
[2018-10-27] MEDS: LEVOFLOXACIN 250 MG TABLET PO SCH (21:05)
[2018-10-27 21:18] LABS: *BILIRUBIN,URIN NEGATIVE (NEGATIVE); *BLOOD, URINE Trace-intact (NEGATIVE); *COLOR,URINE YELLOW (YELLOW); *KETONES,URINE NEGATIVE (NEGATIVE); *UROBILINOGEN,URINE 0.2 E.U./dl (NORMAL); LEUKOCYTE ESTERASE ,URINE 1+ (NEGATIVE); NITRITE, URINE NEGATIVE (NEGATIVE); UGLUCOSE NEGATIVE (NEGATIVE)
[2018-10-27 21:24] LABS: *CLARITY,URINE SLIGHTLY HAZY (CLEAR)
--- NOTE | 2018-10-27 21:24 | NUR ---
Received pt resting in bed. AAO x3. No acute distress noted. No c/o pain or discomfort. All due meds given as ordered. Thomas catheter draining with clear yellow colored urine. Order for UA noted, collected and sent to the lab. Safety measures maintained. Call light and personal belongings within reach. Will continue to monitor.
[2018-10-27 21:26] LABS: BACTERIA,URINE FEW /HPF (NONE SEEN); MUCUS,URINE FEW /LPF (0-FEW); SQUAMOUS EPITHELIAL CELL,UR FEW /HPF (NONE SEEN)
[2018-10-28 05:09] VITALS: BP 106/59
--- NOTE | 2018-10-28 07:05 | NUR ---
Removed leal catheter as ordered. Both heels offloaded. Turned and repositioned q2h. All needs attended to promptly. Will endorse to oncoming shift. Continue to monitor.
[2018-10-28 08:00] VITALS: BP 99/56
[2018-10-28] MEDS: CARVEDILOL 6.25 MG TABLET PO SCH ×2 (08:00→17:01)
[2018-10-28] MEDS: SPIRONOLACTONE 25 MG TABLET PO SCH (08:56)
[2018-10-28] MEDS: ASPIRIN 81 MG TAB.CHEW PO SCH (08:56)
[2018-10-28] MEDS: ESCITALOPRAM OXALATE 10 MG TABLET PO SCH (08:56)
[2018-10-28] MEDS: BISACODYL 5 MG TABLET.DR PO SCH (08:56)
--- NOTE | 2018-10-28 10:02 | NUR ---
Received pt in bed. A/Ox2. No acute distress noted. Denies CP or SOB. No bladder distention. All due medications given as ordered and tolerated well. Safety measures maintained. Call light and all frequently used items in place. Will continue to monitor accordingly.
[2018-10-28 16:00] VITALS: BP 105/53
--- NOTE | 2018-10-28 19:31 | NUR ---
End of shift: All due medications administered as ordered and tolerated well. No new skin condition noted. . Kept pt. clean and dry. S/P leal removal on monitoring for urinary retention. Voided 2x this shift, no bladder distention noted. Call light and all frequently used items within pt. reach. Will endorse to oncoming shift accordingly.
--- NOTE | 2018-10-28 19:40 | NUR ---
Patient received in bed. AAO x3. Able to make needs known. No sign of acute distress or SOB was noted. On room air. No Complain of pain at this time. Patient assessed. Safety measures maintained. Fall prevention observed. Bed in low position, brake and alarm on, side rails up x2. Call light and personal belongings within reach. Will continue to monitor.
[2018-10-28 20:00] VITALS: BP 111/59
[2018-10-28] MEDS: LEVOFLOXACIN 250 MG TABLET PO SCH (22:12)
[2018-10-28] MEDS: TAMSULOSIN HCL 0.4 MG CAP.SR.24H PO SCH (22:12)
[2018-10-28] MEDS: ATORVASTATIN 10 MG TABLET PO SCH (22:12)
[2018-10-28] MEDS: CHOLECALCIFEROL 1,000 UNIT TABLET PO SCH (22:12)
[2018-10-29] MEDS: ZOLPIDEM 5 MG TABLET PO PRN ×2 (00:23→21:07)
[2018-10-29 06:25] VITALS: BP 108/60
--- NOTE | 2018-10-29 07:41 | NUR ---
Bladder scanned showed 744 ml urine. Encouraged patient to go to the bathroom. Patient urinated and had BM. endorse to the day shift nurse for continuing care.
[2018-10-29 08:00] VITALS: BP 120/58
[2018-10-29] MEDS: CARVEDILOL 6.25 MG TABLET PO SCH ×2 (08:15→17:00)
[2018-10-29] MEDS: BISACODYL 5 MG TABLET.DR PO SCH (08:15)
[2018-10-29] MEDS: ESCITALOPRAM OXALATE 10 MG TABLET PO SCH (08:15)
[2018-10-29] MEDS: ASPIRIN 81 MG TAB.CHEW PO SCH (08:15)
[2018-10-29] MEDS: SPIRONOLACTONE 25 MG TABLET PO SCH (08:16)
--- NOTE | 2018-10-29 09:32 | NUR ---
Received pt in bed. A/Ox3 able make his needs known. No acute distress noted. Denies CP or SOB. Pt. BRP seen voiding with good amt. of urine. All due medications given as ordered and tolerated well. Safety measures maintained. Call light and all frequently used items in place. Will continue to monitor accordingly.
[2018-10-29 16:53] VITALS: BP 122/60
--- NOTE | 2018-10-29 18:03 | NUR ---
Dr. Rajendra Phelan on-site, came and seen pt. Informed MD of pt. c/o upper abdominal pain. DTR informed nursing staff that pt. had gallstones back in May, 2018. Dr. Drew with order for US gallbladder. Orders noted and carried out accordingly. DTRGenny informed and thankful. Pt. made aware.
--- NOTE | 2018-10-29 18:48 | NUR ---
End of shift: All due medications administered as ordered and tolerated well. No new skin condition noted. Kept pt. clean and dry. Voided 2x this shift, no bladder distention noted. Bladder scan performed and noted with 142ML. Participated with PT/OT and tolerated TX well. DTR at bedside requesting for GI consult r/t hx: MD soto to be notified of request. Call light and all frequently used items within pt. reach. Will endorse to oncoming shift accordingly.
[2018-10-29 19:47] VITALS: BP 112/57
--- NOTE | 2018-10-29 20:28 | NUR ---
Received pt in bed, AAO x 3 watching television. No acute distress noted. Verbally responsive and able to make needs known. Denies pain or discomfort at this time. All safety measures and fall precautions maintained. Call light and all personal belongings within reach. Assisted to the bathroom x 1 using walker with standby assistance, large BM. Will continue to monitor.
[2018-10-29] MEDS: LEVOFLOXACIN 250 MG TABLET PO SCH (21:05)
[2018-10-29] MEDS: TAMSULOSIN HCL 0.4 MG CAP.SR.24H PO SCH (21:05)
[2018-10-29] MEDS: ATORVASTATIN 10 MG TABLET PO SCH (21:06)
[2018-10-29] MEDS: CHOLECALCIFEROL 1,000 UNIT TABLET PO SCH (21:06)
--- NOTE | 2018-10-30 00:12 | NUR ---
Assisted to bathroom using walker with standby assistance. Urine noted clear, yellow. Bladder scan done, PVR noted to be 20 ml in bladder. Safety maintained. Call light within reach. Will continue to monitor.
[2018-10-30 04:38] VITALS: BP 125/66
[2018-10-30 07:44] VITALS: BP 124/61
[2018-10-30] MEDS: SPIRONOLACTONE 25 MG TABLET PO SCH (08:25)
[2018-10-30] MEDS: ASPIRIN 81 MG TAB.CHEW PO SCH (08:25)
[2018-10-30] MEDS: BISACODYL 5 MG TABLET.DR PO SCH (08:25)
[2018-10-30] MEDS: ESCITALOPRAM OXALATE 10 MG TABLET PO SCH (08:25)
[2018-10-30] MEDS: CARVEDILOL 6.25 MG TABLET PO SCH ×2 (08:25→17:06)
--- NOTE | 2018-10-30 08:42 | NUR ---
Received pt in bed. A/OX3 able make his needs known. No acute distress noted. Denies CP or SOB. All due medications given as ordered and tolerated well. Safety measures maintained. Kept pt. clean and dry. Call light and all frequently used items in place. Will continue to monitor accordingly.
--- NOTE | 2018-10-30 09:51 | NUR ---
Obtained order to d/c routine bladder scan from Dr. Rajendra Hilton. Pt. not exhibiting any s/sx of urinary retention, voiding well with no bladder distention noted. MD amenable with order. All orders noted and carried out. Pt. and r/p made aware.
--- NOTE | 2018-10-30 10:00 | NUR ---
Received order from for NPO for upcoming US of gallbladder on 10/31/18. Orders noted and carried out.
--- NOTE | 2018-10-30 10:50 | NUR ---
PT NOT NPO FOR US GALLBLADDER. RN TO PLACE PT NPO AFTER MIDNIGHT. US WILL BE DONE TMRW AM
--- NOTE | 2018-10-30 13:31 | NUR ---
INTERDISCIPLINARY TEAM CONFERENCE
[2018-10-30] MEDS ORDERED: ACETAMINOPHEN 325 MG TABLET PO PRN (14:45)
[2018-10-30 16:50] VITALS: BP 104/51
[2018-10-30] MEDS: ELIQUIS 2.5 MG PO SCH (16:52)
--- NOTE | 2018-10-30 18:05 | NUR ---
End of shift: All due medications administered as ordered and tolerated well. No new skin condition noted. Kept pt. clean and dry. Voided during this shift, no bladder distention noted. Participated with PT/OT and tolerated TX well. Received order from Dr. Drew to restart Eliquis. Entresto to remain on hold per MD 2/ low SBP. DTR aware and thankful, will bring pt. own meds (Eliquis) on 10/31/18. No s/sx of bleeding noted. Call light and all frequently used items within pt. reach. Will endorse to oncoming shift accordingly.
--- NOTE | 2018-10-30 19:35 | NUR ---
Received pt resting in bed. AAO x3. No acute distress noted. No c/o pain or discomfort. Assisted to the bathroom using walker, standby assist. Voided with clear yellow colored urine. Bowel movement x1. Pt is now back to bed, resting. PT will be NPO from midnight, will implement as ordered. Safety measures maintained. Call light and personal belongings within reach. Will continue to monitor.
[2018-10-30 19:40] VITALS: BP 131/58
[2018-10-30] MEDS: LEVOFLOXACIN 250 MG TABLET PO SCH (20:11)
[2018-10-30] MEDS: TAMSULOSIN HCL 0.4 MG CAP.SR.24H PO SCH (20:11)
[2018-10-30] MEDS: ATORVASTATIN 10 MG TABLET PO SCH (20:11)
[2018-10-30] MEDS: CHOLECALCIFEROL 1,000 UNIT TABLET PO SCH (20:11)
[2018-10-31 04:00] VITALS: BP 112/63
--- NOTE | 2018-10-31 07:06 | NUR ---
Pt slept intermittently at night. VSS. Assisted to the bathroom as needed. All needs attended to promptly. NPO status maintained from midnight. Will endorse to oncoming shift. Continue to monitor.
[2018-10-31 07:46] VITALS: BP 124/56
[2018-10-31] MEDS: SPIRONOLACTONE 25 MG TABLET PO SCH (11:14)
[2018-10-31] MEDS: ESCITALOPRAM OXALATE 10 MG TABLET PO SCH (11:14)
[2018-10-31] MEDS: BISACODYL 5 MG TABLET.DR PO SCH (11:15)
[2018-10-31] MEDS: CARVEDILOL 6.25 MG TABLET PO SCH ×2 (11:16→17:10)
[2018-10-31] MEDS: ASPIRIN 81 MG TAB.CHEW PO SCH (11:16)
[2018-10-31] MEDS: ELIQUIS 2.5 MG PO SCH ×2 (11:17→16:30)
--- NOTE | 2018-10-31 14:57 | NUR ---
Patient continue therapy for ambulation and ADL ability. Patient undergone gallbladder MILLI. awaiting for result. no complaint of pain/discomfort noted. will continue monitor
--- NOTE | 2018-10-31 18:32 | NUR ---
Patient gallbladder MILLI result relayed to MD Drew. no new order. Patient in stable condition. will continue monitor
[2018-10-31 19:20] VITALS: BP 116/51
--- NOTE | 2018-10-31 19:30 | NUR ---
Received pt resting in bed. Alert and oriented x 2-3. No SOB or pain noted at this time. patient resting in bed comfortably talking on sell phone. Safety measures maintained. Side rails up bilaterally. Call light and personal belongings within reach. Will continue to monitor.
[2018-10-31] MEDS: LEVOFLOXACIN 250 MG TABLET PO SCH (20:08)
[2018-10-31] MEDS: CHOLECALCIFEROL 1,000 UNIT TABLET PO SCH (20:08)
[2018-10-31] MEDS: ZOLPIDEM 5 MG TABLET PO PRN (20:08)
[2018-10-31] MEDS: ATORVASTATIN 10 MG TABLET PO SCH (20:08)
[2018-10-31] MEDS: TAMSULOSIN HCL 0.4 MG CAP.SR.24H PO SCH (20:08)
[2018-11-01 05:00] VITALS: BP 119/60
--- NOTE | 2018-11-01 06:35 | NUR ---
No significant change during overnight cashier. All due medications given-tolerated well. Second to last dose of PO ATB for UTI given at 2100. Patient slept intermittently during the night. No C/O pain or SOB during shift. Assisted patient to bathroom x1. Side rails up for safety. Call light and frequently used items within reach. Will endorse to oncoming shift accordingly.
[2018-11-01 07:00] LABS: BASOPHILS # (AUTO) 0.1 K/uL (0.0-8.0); BASOPHILS % (AUTO) 0.6 % (0.0-2.0); EOSINOPHILS # (AUTO) 0.1 K/uL (0.0-0.7); EOSINOPHILS % (AUTO) 1.1 % (0.0-7.0); HEMATOCRIT 36.6 % (36.7-47.1); HEMOGLOBIN 12.1 g/dL (12.5-16.3); LYMPHOCYTES # (AUTO) 1.5 K/uL (20.0-40.0); LYMPHOCYTES % (AUTO) 11.9 % (20.5-51.5); MEAN CORPUSCULAR HEMOGLOBIN 28.8 uug (23.8-33.4); MEAN CORPUSCULAR HGB CONC 33 g/dL (32.5-36.3); MEAN CORPUSCULAR VOLUME 87.2 fL (73.0-96.2); MONOCYTES % (AUTO) 7.6 % (0.0-11.0); NEUTROPHILS # (AUTO) 9.9 K/uL (1.8-8.9); NEUTROPHILS % (AUTO) 78.8 % (38.5-71.5); PLATELET COUNT (AUTO) 365 K/uL (152-348); WHITE BLOOD COUNT (AUTO) 12.6 K/uL (3.6-10.2)
[2018-11-01 07:13] LABS: CARBON DIOXIDE 27 mmol/L (21-32); CHLORIDE 99 mmol/L (98-107); CREATININE 1.2 mg/dL (0.6-1.3); GLUCOSE 104 mg/dL (74-106); MAGNESIUM 2.2 mg/dL (1.8-2.4); PHOSPHOROUS 3.6 mg/dL (2.5-4.9); POTASSIUM 4.3 mmol/L (3.5-5.1); UREA NITROGEN, BLOOD 32 mg/dL (7-18)
[2018-11-01 08:05] VITALS: BP 122/62
[2018-11-01] MEDS: SPIRONOLACTONE 25 MG TABLET PO SCH (08:15)
[2018-11-01] MEDS: ESCITALOPRAM OXALATE 10 MG TABLET PO SCH (08:15)
[2018-11-01] MEDS: CARVEDILOL 6.25 MG TABLET PO SCH ×2 (08:15→17:02)
[2018-11-01] MEDS: BISACODYL 5 MG TABLET.DR PO SCH (08:16)
[2018-11-01] MEDS: ELIQUIS 2.5 MG PO SCH ×2 (08:16→16:13)
[2018-11-01] MEDS: ASPIRIN 81 MG TAB.CHEW PO SCH (08:16)
--- NOTE | 2018-11-01 08:25 | NUR ---
Received pt in bed. A/OX3 able make his needs known. No acute distress noted. Denies CP or SOB. All due medications given as ordered and tolerated well. Safety measures maintained. Kept pt. clean and dry. No s/sx of bleeding noted, currently on Eliquis. Bilateral heel floated. Call light and all frequently used items in place. Will continue to monitor accordingly.
[2018-11-01 16:13] VITALS: BP 112/58
--- NOTE | 2018-11-01 18:38 | NUR ---
End of shift: All due medications administered as ordered and tolerated well. No new skin condition noted. Kept pt. clean and dry.. Participated with PT/OT and tolerated TX well. No s/sx of bleeding noted. Call light and all frequently used items within pt. reach. Will endorse to oncoming shift accordingly.
[2018-11-01 19:20] VITALS: BP 111/57
--- NOTE | 2018-11-01 19:25 | NUR ---
Patient received asleep in bed. Arousable to touch and auditory stimulation. Alert and oriented x 2-3. No SOB or pain noted at this time. Safety measures maintained. Side rails up bilaterally. Call light and personal belongings within reach. Will continue to monitor.
[2018-11-01] MEDS: TAMSULOSIN HCL 0.4 MG CAP.SR.24H PO SCH (20:16)
[2018-11-01] MEDS: ZOLPIDEM 5 MG TABLET PO PRN (20:16)
[2018-11-01] MEDS: ATORVASTATIN 10 MG TABLET PO SCH (20:16)
[2018-11-01] MEDS: CHOLECALCIFEROL 1,000 UNIT TABLET PO SCH (20:16)
[2018-11-01] MEDS: LEVOFLOXACIN 250 MG TABLET PO SCH (20:16)
[2018-11-02 05:17] VITALS: BP 132/54
--- NOTE | 2018-11-02 06:44 | NUR ---
Patient slept intermittently throughout the night. All due medications given-tolerated well. Last dose of PO ATB for UTI given at 2100. No C/O pain or SOB during shift. Assisted patient to bathroom x2. Side rails up for safety. Call light and frequently used items within reach. Will endorse to oncoming shift accordingly.
[2018-11-02 08:00] VITALS: BP 148/71
[2018-11-02] MEDS: CARVEDILOL 6.25 MG TABLET PO SCH ×2 (08:16→17:00)
[2018-11-02] MEDS: BISACODYL 5 MG TABLET.DR PO SCH (08:17)
[2018-11-02] MEDS: SPIRONOLACTONE 25 MG TABLET PO SCH (08:17)
[2018-11-02] MEDS: ASPIRIN 81 MG TAB.CHEW PO SCH (08:17)
[2018-11-02] MEDS: ESCITALOPRAM OXALATE 10 MG TABLET PO SCH (08:17)
[2018-11-02] MEDS: ELIQUIS 2.5 MG PO SCH ×2 (08:18→16:27)
--- NOTE | 2018-11-02 09:15 | NUR ---
Received pt in bed. A/OX3 able make his needs known. No acute distress noted. Denies CP or SOB. No c/o abdominal pain. All due medications given as ordered and tolerated well. Safety measures maintained. Kept pt. clean and dry. No s/sx of bleeding noted. Bilateral heel floated. Call light and all frequently used items in place. Will continue to monitor accordingly.
[2018-11-02 16:47] VITALS: BP 109/55
--- NOTE | 2018-11-02 18:02 | NUR ---
End of shift: All due medications administered as ordered and tolerated well. No new skin condition noted. Kept pt. clean and dry. Floated bilateral heels for skin mgt. No s/sx of bleeding noted. Call light and all frequently used items within pt. reach. Will endorse to oncoming shift accordingly.
[2018-11-02 20:31] VITALS: BP 104/59
[2018-11-02] MEDS: TAMSULOSIN HCL 0.4 MG CAP.SR.24H PO SCH (21:16)
[2018-11-02] MEDS: CHOLECALCIFEROL 1,000 UNIT TABLET PO SCH (21:16)
[2018-11-02] MEDS: ATORVASTATIN 10 MG TABLET PO SCH (21:17)
[2018-11-02] MEDS: ZOLPIDEM 5 MG TABLET PO PRN (21:18)
--- NOTE | 2018-11-03 05:03 | NUR ---
quiet night. aaox3. oob to the BR with walker. voiding well. needs attended. tolerated po meds well I & O needed. Fall precautions maintained. Call zimmerman within reach. denies pain at this time. will monitor patient.
[2018-11-03 05:04] VITALS: BP 113/65
[2018-11-03] MEDS: CARVEDILOL 6.25 MG TABLET PO SCH ×2 (08:00→17:00)
[2018-11-03] MEDS: SPIRONOLACTONE 25 MG TABLET PO SCH (08:12)
[2018-11-03] MEDS: BISACODYL 5 MG TABLET.DR PO SCH (08:12)
[2018-11-03] MEDS: ESCITALOPRAM OXALATE 10 MG TABLET PO SCH (08:12)
[2018-11-03] MEDS: ELIQUIS 2.5 MG PO SCH ×2 (08:12→16:49)
[2018-11-03] MEDS: ASPIRIN 81 MG TAB.CHEW PO SCH (08:12)
[2018-11-03 09:45] VITALS: BP 106/57
--- NOTE | 2018-11-03 10:00 | NUR ---
Received pt in bed. A/OX3 able make his needs known. No acute distress noted. Denies CP or SOB. No c/o abdominal pain. All due medications given as ordered and tolerated well. Ate breakfast this AM while sitting on chair. Safety measures maintained. Kept pt. clean and dry. No s/sx of bleeding noted. Bilateral heel floated. Call light and all frequently used items in place. Will continue to monitor accordingly.
[2018-11-03 16:26] VITALS: BP 99/55
--- NOTE | 2018-11-03 18:07 | NUR ---
End of shift: All due medications administered as ordered and tolerated well. Kept pt. clean and dry. Floated bilateral heels for skin mgt. No s/sx of bleeding noted. Call light and all frequently used items within pt. reach. Will endorse to oncoming shift accordingly.
[2018-11-03 19:30] VITALS: BP 122/62
--- NOTE | 2018-11-03 19:30 | NUR ---
Patient received in bed watching TV. Arousable to touch and auditory stimulation. Alert and oriented x 2-3. No SOB or pain noted at this time. Assisted patient with cell phone so patient could speak to daughter. Safety measures maintained. Side rails up bilaterally. Call light and personal belongings within reach. Will continue to monitor.
[2018-11-03] MEDS: TAMSULOSIN HCL 0.4 MG CAP.SR.24H PO SCH (21:16)
[2018-11-03] MEDS: CHOLECALCIFEROL 1,000 UNIT TABLET PO SCH (21:16)
[2018-11-03] MEDS: ATORVASTATIN 10 MG TABLET PO SCH (21:16)
[2018-11-03] MEDS: ZOLPIDEM 5 MG TABLET PO PRN (21:16)
[2018-11-04 05:16] VITALS: BP 120/52
--- NOTE | 2018-11-04 06:31 | NUR ---
Patient slept intermittently throughout the night. All due medications given-tolerated well. No C/O pain or SOB during shift. Assisted patient to bathroom x2. Photos taken of wounds and placed in chart. Side rails up for safety. Call light and frequently used items within reach. Will endorse to oncoming shift accordingly.
[2018-11-04 07:30] VITALS: BP 106/65
[2018-11-04] MEDS: BISACODYL 5 MG TABLET.DR PO SCH (08:40)
[2018-11-04] MEDS: SPIRONOLACTONE 25 MG TABLET PO SCH (08:40)
[2018-11-04] MEDS: CARVEDILOL 6.25 MG TABLET PO SCH ×2 (08:40→17:21)
[2018-11-04] MEDS: ESCITALOPRAM OXALATE 10 MG TABLET PO SCH (08:40)
[2018-11-04] MEDS: ASPIRIN 81 MG TAB.CHEW PO SCH (08:41)
[2018-11-04] MEDS: ELIQUIS 2.5 MG PO SCH ×2 (08:41→17:20)
--- NOTE | 2018-11-04 09:00 | NUR ---
Patient noted sitting on the side of bed eating breakfast, took all AM medications, no complaints of pain, no signs of distress noted, call light in reach, bed locked and in lowest positon, all needs met at this time
[2018-11-04 16:31] VITALS: BP 111/55
[2018-11-04 20:02] VITALS: BP 118/41
[2018-11-04] MEDS: CHOLECALCIFEROL 1,000 UNIT TABLET PO SCH (20:04)
[2018-11-04] MEDS: TAMSULOSIN HCL 0.4 MG CAP.SR.24H PO SCH (20:05)
[2018-11-04] MEDS: ZOLPIDEM 5 MG TABLET PO PRN (20:05)
[2018-11-04] MEDS: ATORVASTATIN 10 MG TABLET PO SCH (20:05)
--- NOTE | 2018-11-04 21:17 | NUR ---
Received patient in watching TV. Alert and oriented x 2-3. No SOB or pain noted at this time. Safety measures maintained. Side rails up bilaterally. Call light and personal belongings within reach. Will continue to monitor.
[2018-11-05 04:47] VITALS: BP 115/37
--- NOTE | 2018-11-05 06:46 | NUR ---
No significant change overnight. Patient slept on and off throughout the night. All due medications given-tolerated well. No C/O pain or SOB during shift. Assisted patient to bathroom x2. Side rails up for safety. Call light and frequently used items within reach. Will endorse to oncoming shift accordingly.
[2018-11-05 07:15] LABS: BASOPHILS # (AUTO) 0.1 K/uL (0.0-8.0); BASOPHILS % (AUTO) 1.2 % (0.0-2.0); EOSINOPHILS # (AUTO) 0.2 K/uL (0.0-0.7); EOSINOPHILS % (AUTO) 1.6 % (0.0-7.0); HEMATOCRIT 35.3 % (36.7-47.1); HEMOGLOBIN 11.8 g/dL (12.5-16.3); LYMPHOCYTES # (AUTO) 1.8 K/uL (20.0-40.0); MEAN CORPUSCULAR HEMOGLOBIN 28.8 uug (23.8-33.4); MEAN CORPUSCULAR HGB CONC 33 g/dL (32.5-36.3); MEAN CORPUSCULAR VOLUME 86.7 fL (73.0-96.2); MONOCYTES # (AUTO) 0.9 K/uL (2.0-10.0); MONOCYTES % (AUTO) 8.5 % (0.0-11.0); NEUTROPHILS # (AUTO) 7.2 K/uL (1.8-8.9); NEUTROPHILS % (AUTO) 70.7 % (38.5-71.5); PLATELET COUNT (AUTO) 372 K/uL (152-348); RED BLOOD CELL COUNT(AUTO) 4.08 MIL/uL (4.06-5.63); WHITE BLOOD COUNT (AUTO) 10.1 K/uL (3.6-10.2)
[2018-11-05 07:29] LABS: CARBON DIOXIDE 24 mmol/L (21-32); CHLORIDE 99 mmol/L (98-107); CREATININE 1.2 mg/dL (0.6-1.3); GLUCOSE 128 mg/dL (74-106); MAGNESIUM 2.2 mg/dL (1.8-2.4); PHOSPHOROUS 3.5 mg/dL (2.5-4.9); POTASSIUM 4.2 mmol/L (3.5-5.1); UREA NITROGEN, BLOOD 38 mg/dL (7-18)
[2018-11-05 08:00] VITALS: BP 102/53
[2018-11-05] MEDS: CARVEDILOL 6.25 MG TABLET PO SCH ×2 (08:00→17:13)
[2018-11-05] MEDS: SPIRONOLACTONE 25 MG TABLET PO SCH (09:01)
[2018-11-05] MEDS: ASPIRIN 81 MG TAB.CHEW PO SCH (09:01)
[2018-11-05] MEDS: BISACODYL 5 MG TABLET.DR PO SCH (09:01)
[2018-11-05] MEDS: ESCITALOPRAM OXALATE 10 MG TABLET PO SCH (09:01)
[2018-11-05] MEDS: ELIQUIS 2.5 MG PO SCH ×2 (09:03→17:13)
--- NOTE | 2018-11-05 11:03 | NUR ---
Patient being assisted to restroom at this time, took all AM medications, no complaints of pain, no signs of distress noted, call light in reach, bed locked and in lowest positon, all needs met at this time
[2018-11-05 16:00] VITALS: BP 116/66
[2018-11-05] MEDS: CHOLECALCIFEROL 1,000 UNIT TABLET PO SCH (21:34)
[2018-11-05] MEDS: ATORVASTATIN 10 MG TABLET PO SCH (21:34)
[2018-11-05] MEDS: TAMSULOSIN HCL 0.4 MG CAP.SR.24H PO SCH (21:34)
[2018-11-05] MEDS: ZOLPIDEM 5 MG TABLET PO PRN (21:36)
[2018-11-05 22:35] VITALS: BP 126/77
[2018-11-06 06:42] VITALS: BP 109/64
--- NOTE | 2018-11-06 06:56 | NUR ---
quiet night. aaox4 OOB to the BR with cane . Voiding well. Needs attended. VSS possible d/c to SNF today. VSS. denies any pain nor any discomfort. will monitor patient.
[2018-11-06] MEDS: ESCITALOPRAM OXALATE 10 MG TABLET PO SCH (08:50)
[2018-11-06 08:51] VITALS: BP 120/59
[2018-11-06] MEDS: CARVEDILOL 6.25 MG TABLET PO SCH (08:51)
[2018-11-06] MEDS: BISACODYL 5 MG TABLET.DR PO SCH (08:51)
[2018-11-06] MEDS: ASPIRIN 81 MG TAB.CHEW PO SCH (08:51)
[2018-11-06] MEDS: SPIRONOLACTONE 25 MG TABLET PO SCH (08:52)
[2018-11-06] MEDS: ELIQUIS 2.5 MG PO SCH (08:52)
--- NOTE | 2018-11-06 15:55 | NUR ---
AMBULANCE HERE TO TRANSPORT HIM TO [facility]. D/C ORDER ON FILE . D/C PICS TAKEN. SKIN INTACT.REPORT GIVEN TO RECEIVING NURSE. BELONGINGS LEFT WITH PT .. CELL PHONE AND LUMBER DRIVER, DENTURES, GLASSES, CLOTHES WITH BELT. VSS
== END 2018-11-06 16:00 | DRG 871 ==
PROVIDERS: ADMIT Physical Medicine & Rehabilitation Pain Medicine; ATTEND Physical Medicine & Rehabilitation Pain Medicine
DX: A41.51 Sepsis due to Escherichia coli [E. coli] (principal); G92 Toxic encephalopathy; E43 Unspecified severe protein-calorie malnutrition; I21.A1 Myocardial infarction type 2; I50.43 Acute on chronic combined systolic (congestive) and diastolic (congestive) heart failure; N39.0 Urinary tract infection, site not specified; I13.0 Hypertensive heart and chronic kidney disease with heart failure and stage 1 through stage 4 chronic kidney disease, or unspecified chronic kidney disease; D68.59 Other primary thrombophilia; E87.1 Hypo-osmolality and hyponatremia; R17 Unspecified jaundice; G20 Parkinson's disease; I25.10 Atherosclerotic heart disease of native coronary artery without angina pectoris; R26.9 Unspecified abnormalities of gait and mobility; I48.0 Paroxysmal atrial fibrillation; N18.9 Chronic kidney disease, unspecified; R29.6 Repeated falls; I25.5 Ischemic cardiomyopathy; Z91.81 History of falling; N40.0 Benign prostatic hyperplasia without lower urinary tract symptoms; Z90.79 Acquired absence of other genital organ(s); M19.90 Unspecified osteoarthritis, unspecified site; Z95.1 Presence of aortocoronary bypass graft; Z95.810 Presence of automatic (implantable) cardiac defibrillator; G31.84 Mild cognitive impairment of uncertain or unknown etiology; I70.0 Atherosclerosis of aorta; K59.00 Constipation, unspecified; N28.1 Cyst of kidney, acquired; R53.1 Weakness
CPT/HCPCS: 36415; 70030-TC; 71045; 83735; 84100; 85025; 87086; 92523; 92526; 92610; 93005; 97110; 97112; 97116; 97530; 97535; A4663